=== PATIENT | female | born 1990 | race Caucasian/White ===

== ENCOUNTER 2019-10-06 05:55 | Emergency (ER) | payer MEDICAID ==
[~2019-10-06] VITALS: Ht 154.9 cm; Wt 53.7 kg
--- NOTE | 2019-10-06 06:12 | NUR ---
PT UP TO RR, URINE CUP PROVIDED
--- NOTE | 2019-10-06 06:19 | NUR ---
URINE SAMPLE TAKEN TO LAB
[2019-10-06 06:29] LABS: CULTURE INDICATED? YES; MICROSCOPIC INDICATED
[2019-10-06] MEDS ORDERED: ONDANSETRON 2MG/ML, 2ML IVPush ONE (06:30)
[2019-10-06] MEDS ORDERED: FAMOTIDINE 20 MG/2 ML IVPush ONE (06:30)
[2019-10-06] MEDS ORDERED: SODIUM CHLORIDE 0.9% 1,000ML IVBOLUS ONE (06:30)
[2019-10-06] MEDS ORDERED: SODIUM CHLORIDE FLUSH 10ML SYR IVF ONE (06:30)
[2019-10-06] MEDS ORDERED: ONDANSETRON 2MG/ML, 2ML ONE (06:32)
[2019-10-06] MEDS ORDERED: FAMOTIDINE 20 MG/2 ML ONE (06:32)
--- NOTE | 2019-10-06 06:36 | NUR ---
IV SITE STARTED, LABS DRAWN AND SENT. PT SITTING UP ON GURNEY, MONITORS APPLIED, SIDERAILS UP X2, CALL LIGHT WITHIN REACH. AWAITING LAB RESULTS AND ULTRASOUND
[2019-10-06 06:41] LABS: BASOPHILS # (AUTO) 0.03 x10^3/uL (0-0.1); BASOPHILS % (AUTO) 0 % (0-1); EOSINOPHILS # (AUTO) 0.07 x10^3/uL (0-0.4); EOSINOPHILS % (AUTO) 1 % (1-7); LYMPHOCYTES # (AUTO) 1.82 x10^3/uL (1-3.4); LYMPHOCYTES % (AUTO) 17 % (22-44); MD NO; MEAN CORPUSCULAR HEMOGLOBIN 32.4 pg (27.0-34.8); MEAN CORPUSCULAR HGB CONC 34.6 g/dL (32.4-35.8); MEAN CORPUSCULAR VOLUME 93.5 fL (80-100); MEAN PLATELET VOLUME 9.7 fL (7.4-10.4); MONOCYTES % (AUTO) 13 % (2-9); NEUTROPHILS # (AUTO) 7.23 x10^3/uL (1.8-6.8); NEUTROPHILS % (AUTO) 69 % (42-75); PLATELET COUNT 189 x10^3/uL (130-400); RED BLOOD COUNT 4.55 x10^6/uL (3.82-5.3); RED CELL DISTRIBUTION WIDTH 13.1 % (9.6-15.2)
--- NOTE | 2019-10-06 06:52 | NUR ---
REPORT GIVEN TO MARCO NUNEZ
--- NOTE | 2019-10-06 06:52 | NUR ---
REPORT RECEIVED FROM LIVIA RN. PT RESTING ON [facility] AT THIS TIME, NAD NOTED
[2019-10-06 06:53] LABS: ALBUMIN 4.1 g/dL (3.4-5.0); ANION GAP 8 mmol/L (5-15); CALCIUM 9.1 mg/dL (8.5-10.1); CHLORIDE 108 mmol/L (98-107)
[2019-10-06 06:58] LABS: ALANINE AMINOTRANSFERASE 18 U/L (12-78); ALKALINE PHOSPHATASE 58 U/L (45-117); BILIRUBIN,TOTAL 0.5 mg/dL (0.2-1.0); CREATININE 0.86 mg/dL (0.55-1.02); TOTAL PROTEIN 7.8 g/dL (6.4-8.2)
[2019-10-06 07:16] VITALS: BP 128/82
== END 2019-10-06 08:10 | disposition home or self-care (01) ==
LOC: ED 06:40
DX: R10.13 Epigastric pain (principal); R11.2 Nausea with vomiting, unspecified; K21.9 Gastro-esophageal reflux disease without esophagitis
CPT/HCPCS: 36415; 76700; 80053; 81001; 83690; 84703; 85025; 87086; 96361; 96374; 96375; 99284; J2405; J3490; J7030

== ENCOUNTER 2020-09-02 02:15 | Emergency (ER) | payer MEDICAID ==
[~2020-09-02] VITALS: Ht 152.4 cm; Wt 52.0 kg
[2020-09-02] MEDS ORDERED: HYDROcodone/APAP 5/325 TABLET PO ONE (02:30)
[2020-09-02] MEDS ORDERED: HYDROcodone/APAP 5/325 TABLET ONE (02:32)
--- NOTE | 2020-09-02 02:34 | NUR ---
assessment made. medicated for pain.
[2020-09-02] MEDS ORDERED: BUPIVACAINE 0.25% ONE (03:05)
[2020-09-02 03:25] VITALS: BP 126/70
== END 2020-09-02 03:27 | disposition home or self-care (01) ==
LOC: ED 03:25
DX: K02.9 Dental caries, unspecified (principal); K08.89 Other specified disorders of teeth and supporting structures; K21.9 Gastro-esophageal reflux disease without esophagitis; Z88.8 Allergy status to other drugs, medicaments and biological substances
CPT/HCPCS: 64400; 99284